=== PATIENT | female | born 1935 ===

== ENCOUNTER 2017-07-20 14:55 | Emergency (ER) | payer MEDICARE, OTHER ==
[2017-07-20 15:43] VITALS: BP 173/79; PULSE 91; RESP 16; TEMP 97.9; O2SAT 99
== END 2017-07-20 16:31 | disposition left against medical advice (07) ==
LOC: H.ER 14:55
DX: Z02.89 Encounter for other administrative examinations (principal)

== ENCOUNTER 2017-09-11 23:28 | Emergency (ER) | payer MEDICARE ==
[2017-09-12] VITALS: BP 189/90; PULSE 96; RESP 17; TEMP 98.1; O2SAT 100
[2017-09-12] MEDS ORDERED: Lidocaine 5% Patch TD STA (01:27)
[2017-09-12] MEDS ORDERED: Lidocaine 5% Patch TD ONE (01:48)
--- NOTE | 2017-09-12 02:39 | ED PDOC ---
HPI: General Adult Time Seen by Provider: 09/12/17 00:41 Chief Complaint (Nursing): Lower Extremity Problem/Injury History Per: Patient, Family (son) Additional Complaint(s): Pt. states 2 months ago pt. attempted to lift a bed up and in doing so she injured her lower back. She was seen by her PMD 3 weeks ago due to the back pain as pain began to radiate down the L leg. Pt. had LS spine x-rays done but is uncertain of results. Also reports having urinary frequency without dysuria or flank pain. Denies fever, blunt trauma, abdominal pain, N/V, hematuria. Past Medical History Reviewed: Historical Data, Nursing Documentation, Vital Signs Vital Signs: Last Vital Signs Temp 98.1 F 09/11/17 23:56 Pulse 96 H 09/11/17 23:56 Resp 17 09/11/17 23:56 BP 189/90 H 09/11/17 23:56 Pulse Ox 100 09/12/17 02:43 - Medical History PMH: Diabetes, HTN, Hypercholesterolemia Denies: Chronic Kidney Disease - Family History Family History: States: Unknown Family Hx, Hypertension - Immunization History Hx Tetanus Toxoid Vaccination: No Hx Influenza Vaccination: No Hx Pneumococcal Vaccination: No - Home Medications Home Medications: Ambulatory Orders Medication Instructions Recorded Lisinopril 20 mg PO DAILY 02/09/15 Lovastatin [Lovastatin] 1 tab PO DAILY 04/20/16 Meclizine HCl [Motion Sickness 25 mg PO BID #0 tablet 04/22/16 Relief] Metaxalone [Skelaxin] 800 mg PO BID PRN #10 tablet 09/12/17 Nitrofurantoin Macrocrystals 100 mg PO BID #14 cap 09/12/17 [Macrobid] - Allergies Allergies/Adverse Reactions: Allergies Allergy/AdvReac Type Severity Reaction Status Date / Time No Known Allergies Allergy Verified 09/12/17 00:00 Review of Systems ROS Statement: Except As Marked, All Systems Reviewed And Found Negative Musculoskeletal: Positive for: Back Pain Physical Exam - Physical Exam Appears: Positive for: Well, Non-toxic, No Acute Distress Skin: Positive for: Normal Color, Warm. Negative for: Rash Eye Exam: Positive for: Normal appearance Cardiovascular/Chest: Positive for: Regular Rate, Rhythm Respiratory: Positive for: CNT, Normal Breath Sounds Gastrointestinal/Abdominal: Positive for: Normal Exam, Soft. Negative for: Tenderness Back: Positive for: Normal Inspection, Muscle Spasm (L buttock area). Negative for: L CVA Tenderness, R CVA Tenderness, Vertebral Tenderness Extremity: Positive for: Normal ROM, Other (SLR negative b/l). Negative for: Calf Tenderness (b/l) Neurologic/Psych: Positive for: Alert, Oriented - Laboratory Results Urine dip results: Positive for: Leukocyte Esterase (trace). Negative for: Blood, Nitrate, Ketones, Glucose, Bilirubin, Protein - ECG O2 Sat by Pulse Oximetry: 100 - Progress ED Course And Treament: Toradol 15mg IM, lidoderm patch ordered. LS spine x-ray from 08/03/2017 results showed degenerative changes but no fx. Disposition - Clinical Impression Clinical Impression: UTI (urinary tract infection), Sciatica - Patient ED Disposition Is Patient to be Admitted: No - Disposition Referrals: [facility] [Outside] Disposition: Routine/Home Disposition Time: 02:41 Condition: IMPROVED Prescriptions: Metaxalone [Skelaxin] 800 mg PO BID PRN #10 tablet PRN Reason: Muscle Spasm Nitrofurantoin Macrocrystals [Macrobid] 100 mg PO BID #14 cap Instructions: Urinary Tract Infection in Women (ED), Sciatica (ED) Forms: [employer] ([place])
== END 2017-09-12 02:55 | disposition home or self-care (01) ==
LOC: H.ER 23:28
DX: M54.32 Sciatica, left side (principal); N39.0 Urinary tract infection, site not specified; E11.9 Type 2 diabetes mellitus without complications; E78.00 Pure hypercholesterolemia, unspecified; I10 Essential (primary) hypertension
CPT/HCPCS: 87086; 96372; 99283; J1885

== ENCOUNTER 2018-11-25 13:59 | Observation (INO) | payer MEDICARE ==
[2018-11-25 14:12] VITALS: RESP 16; O2SAT 100
--- NOTE | 2018-11-25 15:56 | RAD ---
Date of service: 11/25/2018 HISTORY: possible admission COMPARISON: 04/20/2016. FINDINGS: LUNGS: The lungs are well inflated and clear. PLEURA: No pleural effusions or pneumothorax. CARDIOVASCULAR: The heart is normal in size. No aortic atherosclerotic calcifications present. OSSEOUS STRUCTURES: Within normal limits for the patient's age. VISUALIZED UPPER ABDOMEN: Normal. OTHER FINDINGS: None. IMPRESSION: No active pulmonary disease.
--- NOTE | 2018-11-25 16:09 | CT ---
Date of service: 11/25/2018 PROCEDURE: CT HEAD WITHOUT CONTRAST. HISTORY: dizziness COMPARISON: 04/20/2016. TECHNIQUE: Axial computed tomography images were obtained through the head/brain without intravenous contrast. Radiation dose: Total exam DLP = 684.43 mGy-cm. This CT exam was performed using one or more of the following dose reduction techniques: Automated exposure control, adjustment of the mA and/or kV according to patient size, and/or use of iterative reconstruction technique. FINDINGS: HEMORRHAGE: No intracranial hemorrhage. BRAIN: There is redemonstration of severe chronic microangiopathic changes. There is no mass, mass effect or abnormal extra-axial fluid collection. There is no territorial infarction. The midline sagittal structures are normal. VENTRICLES: There is mild age-related global parenchymal volume loss and proportionate enlargement of the ventricles and cortical sulci. CALVARIUM: There is no calvarial fracture or extracranial soft tissue swelling. PARANASAL SINUSES: Predominantly clear. MASTOID AIR CELLS: Predominantly clear. OTHER FINDINGS: None. IMPRESSION: No acute intracranial abnormality. Severe chronic microangiopathic changes and mild age-related global parenchymal volume loss.
[2018-11-25 16:25] LABS: BASO # 0.1 K/uL (0.0-0.2); BASO % 0.8 % (0.0-2.0); EOS % 0.6 % (0.0-4.0); HEMOGLOBIN 13.7 g/dL (12.0-16.0); LYMPH # 1.3 K/uL (1.0-4.3); LYMPH % 18.3 % (20.0-40.0); MEAN CORPUSCULAR HEMOGLOBIN 29.2 pg (27.0-31.0); MEAN CORPUSCULAR HGB CONC 33.5 g/dL (33.0-37.0); MEAN PLATELET VOLUME 9.8 fl (7.2-11.7); MONO # 0.4 K/uL (0.0-0.8); MONO % 5.9 % (0.0-10.0); NEUT # 5.1 K/uL (1.8-7.0); NEUT % 74.4 % (50.0-75.0); NRBC % 0.1 % (0.0-0.0); RBC 4.71 Mil/uL (3.80-5.20); RED CELL DISTRIBUTION WIDTH 14.2 % (11.5-14.5); WHITE BLOOD COUNT 6.9 K/uL (4.8-10.8)
[2018-11-25 16:34] LABS: ALB/GLOB RATIO 1.5 (1.0-2.1); ALBUMIN 4.6 g/dL (3.5-5.0); BLOOD UREA NITROGEN 24 mg/dl (7-17); CALCIUM 9.8 mg/dL (8.4-10.2); GFR NON-AFRICAN AMERICAN > 60
[2018-11-25 16:36] LABS: PROTHROMBIN TIME 10.9 Seconds (9.8-13.1)
[2018-11-25 16:39] LABS: PARTIAL THROMBOPLASTIN TIME 29.8 Seconds (25.6-37.1)
--- NOTE | 2018-11-25 16:40 | ED PDOC ---
Syncope/Near Syncope/Dizziness Time Seen by Provider: 11/25/18 14:45 Chief Complaint (Nursing): Dizziness/Lightheaded Chief Complaint (Provider): Dizziness History Per: Patient History/Exam Limitations: no limitations Onset/Duration Of Symptoms: Days (x5), Intermittent Episodes Current Symptoms Are (Timing): Still Present Additional Complaint(s): Mouna Marcum is an 83 year old female, with a past medical history of HTN and diabetes, who presents to the emergency department complaining of an intermittent dizziness ongoing for x5 days. Patient also reports generalized weakness. Patient states dizziness is not associated with position or chest pain. He started HZT x5 days ago but believes dizziness started before he was on medication, however patient is unsure. Patient denies any LOC or recent falls. He denies any other medical complaints at this time. PMD: Richie Orozco Past Medical History Reviewed: Historical Data, Nursing Documentation, Vital Signs Vital Signs: Last Vital Signs Temp 97.6 F 11/25/18 14:07 Pulse 87 11/25/18 14:07 Resp 16 11/25/18 14:07 BP 176/76 H 11/25/18 14:07 Pulse Ox 100 11/25/18 14:07 - Medical History PMH: Diabetes, HTN, Hypercholesterolemia Denies: Chronic Kidney Disease - Surgical History Surgical History: No Surg Hx - Family History Family History: States: Unknown Family Hx, Hypertension - Immunization History Hx Tetanus Toxoid Vaccination: No Hx Influenza Vaccination: No Hx Pneumococcal Vaccination: No - Home Medications Home Medications: Ambulatory Orders Medication Instructions Recorded Hydrochlorothiazide [Microzide] 12.5 mg PO DAILY 11/25/18 Lisinopril [Zestril] 20 mg PO DAILY 11/25/18 - Allergies Allergies/Adverse Reactions: Allergies Allergy/AdvReac Type Severity Reaction Status Date / Time No Known Allergies Allergy Verified 11/25/18 14:07 Review of Systems ROS Statement: Except As Marked, All Systems Reviewed And Found Negative Constitutional: Positive for: Weakness (generalized ) Cardiovascular: Negative for: Chest Pain Neurological: Positive for: Dizziness. Negative for: Other (syncope) Physical Exam - Reviewed Nursing Documentation Reviewed: Yes Vital Signs Reviewed: Yes - Physical Exam Appears: Positive for: No Acute Distress Head Exam: Positive for: ATRAUMATIC, NORMAL INSPECTION, NORMOCEPHALIC Skin: Positive for: Normal Color, Warm, Dry Eye Exam: Positive for: Normal appearance, EOMI, PERRL Neck: Positive for: Normal, Painless ROM, Supple Cardiovascular/Chest: Positive for: Regular Rate, Rhythm. Negative for: Murmur Respiratory: Positive for: Normal Breath Sounds. Negative for: Respiratory Distress Gastrointestinal/Abdominal: Positive for: Normal Exam, Soft. Negative for: Tenderness, Guarding, Rebound Back: Positive for: Normal Inspection. Negative for: L CVA Tenderness, R CVA Tenderness, Vertebral Tenderness Extremity: Positive for: Normal ROM (upper and lower extremities). 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 Negative for: Motor/Sensory Deficits - Laboratory Results Result Diagrams: 11/25/18 15:35 11/25/18 15:35 Lab Results: Total Bilirubin 1.0 mg/dl (0.2-1.3) 11/25/18 15:35 Total Protein 7.8 G/DL (6.3-8.2) 11/25/18 15:35 Albumin 4.6 g/dL (3.5-5.0) 11/25/18 15:35 Globulin 3.2 gm/dL (2.2-3.9) 11/25/18 15:35 Albumin/Globulin Ratio 1.5 (1.0-2.1) 11/25/18 15:35 - ECG O2 Sat by Pulse Oximetry: 100 (RA) Pulse Ox Interpretation: Normal Medical Decision Making Medical Decision Making: Time: 14:45 Initial Impression: Work up for dizziness. R/o cardiac and intracranial etiology. Labs, troponin, EKG and brain CT. Maybe observe to Dr. Orozco and reassess patient Initial Plan: --Head w/o contrast [CT] --CMP --Troponin I --CBC w/ differential --PTT --PT --Chest portable [RAD] --Urinalysis --Reevaluation 15:52 CXR FINDINGS: LUNGS: The lungs are well inflated and clear. PLEURA: No pleural effusions or pneumothorax. CARDIOVASCULAR: The heart is normal in size. No aortic atherosclerotic calcifications present. OSSEOUS STRUCTURES: Within normal limits for the patient's age. VISUALIZED UPPER ABDOMEN: Normal. OTHER FINDINGS: None. IMPRESSION: No active pulmonary disease. 16:[address] FINDINGS: HEMORRHAGE: No intracranial hemorrhage. BRAIN: There is redemonstration of severe chronic microangiopathic changes. There is no mass, mass effect or abnormal extra-axial fluid collection. There is no territorial infarction. The midline sagittal structures are normal. VENTRICLES: There is mild age-related global parenchymal volume loss and proportionate enlargement of the ventricles and cortical sulci. CALVARIUM: There is no calvarial fracture or extracranial soft tissue swelling. PARANASAL SINUSES: Predominantly clear. MASTOID AIR CELLS: Predominantly clear. OTHER FINDINGS: None. IMPRESSION: No acute intracranial abnormality. Severe chronic microangiopathic changes and mild age-related global parenchymal volume loss. 17:42 Labs unremarkable. Discussed case with family practice resident and to be admitted to observation for dizziness. 1830 Pt now refusing to stay. FP resident bedside with this provider and explained the risks to leaving AMA. Pt with son and son agrees that he will be with the patient and will bring her back if there are any changes in status. Pt will follow up with Dr. Ernesto romo. Pt has signed AMA forms with the resident. Scribe Attestation: Documented by Gary Reis, acting as a scribe Rosalino Nobles MD Provider Scribe Attestation: All medical record entries made by the Scribe were at my direction and personally dictated by me. I have reviewed the chart and agree that the record accurately reflects my personal performance of the history, physical exam, medical decision making, and the department course for this patient. I have also personally directed, reviewed, and agree with the discharge instructions and disposition. Disposition - Clinical Impression Clinical Impression: Dizziness of unknown cause - Disposition Disposition Time: 17:42 Condition: STABLE
[2018-11-25 16:47] LABS: ALT/SGPT 33 U/L (9-52); AST/SGOT 33 U/L (14-36)
[2018-11-25] MEDS ORDERED: Sodium Chloride 0.9% 1,000 ML IV STA (16:52)
[2018-11-25 18:21] LABS: SQUAMOUS EPITHIAL 1 /hpf (0-5); URINE BACTERIA RARE (<OCC); URINE BILIRUBIN NEGATIVE (NEGATIVE); URINE BLOOD NEGATIVE (NEGATIVE); URINE CLARITY CLEAR (Clear); URINE COLOR STRAW (YELLOW); URINE GLUCOSE (UA) NEG (NEGATIVE); URINE LEUKOCYTE ESTERASE SMALL Leu/uL (Negative); URINE PROTEIN NEGATIVE (NEGATIVE); URINE UROBILINOGEN 0.2-1.0 mg/dL (0.2-1.0)
[2018-11-25 18:55] VITALS: BP 139/88; PULSE 80; TEMP 97.7
[2018-11-25 18:55] LABS: PROTHROMBIN TIME 11.8 Seconds (9.8-13.1)
[2018-11-25 18:58] LABS: PARTIAL THROMBOPLASTIN TIME 35.8 Seconds (25.6-37.1)
--- NOTE | 2018-11-26 00:35 | CP.PCM.PCO ---
Assessment/Plan - Assessment and Plan (Free Text) Assessment: Patient signed AMA from the ER. Patient was explained about her symptoms, diagnosis and complications in great detail. The patient has the capacity to make this informed decision and understands my explanation of the current medical problem and risks of leaving, including worsening symptoms, and possibly . The patient voluntarily accepts these risks and signed an AMA form documenting our conversation; patient informed to follow up with PMD in 1-2days, The patient was given the opportunity to ask questions and reconsider. The patient was encouraged to return to the ER if symptoms worsen or new symptoms arise. - Dr. Don SOLIZ, PGY-II
== END 2018-11-25 18:27 | disposition left against medical advice (07) ==
LOC: H.ER 13:59 → H.ERHOLD 17:39
PROVIDERS: ADMIT Family Medicine; ATTEND Family Medicine
DX: R42 Dizziness and giddiness (principal); I10 Essential (primary) hypertension; E11.51 Type 2 diabetes mellitus with diabetic peripheral angiopathy without gangrene; E78.00 Pure hypercholesterolemia, unspecified
CPT/HCPCS: 70450; 71045; 80053; 81003; 84484; 85025; 85610; 85730; 99284; G0378